=== PATIENT | female | born 1960 ===

== ENCOUNTER → 2019-09-30 13:20 | Outpatient (CLI) | payer MEDICAID ==
[2019-09-30 17:33] LABS: BASOPHILS 0.3 % (0-2); EOSINOPHILS 3.2 % (0-7); HEMATOCRIT 42.1 % (36.0-48.0); HEMOGLOBIN 13.6 g/dL (12-16); IMMATURE GRANULOCYTES 0.3 % (0-5); LYMPHOCYTES 15.8 % (15-50); MCH 32.1 pg (26.0-34.0); MCHC 32.3 g/dL (31.0-37.0); MCV 99.3 fL (80.0-100.0); MEAN PLATELET VOLUME 10.5 fL (7.4-10.4); MONOCYTES 9.5 % (2-11); NEUTROPHILS 70.9 % (40-80); PLATELET COUNT 380 10x3/uL (130-400); RBC 4.24 10x6/uL (4.00-5.40); RDW 13.3 % (11.5-14.5); WBC 11.6 10x3/uL (4.8-10.8)
[2019-10-02 08:10] LABS: IMMUNOGLOBULIN A 186 mg/dL (87-352); IMMUNOGLOBULIN G 978 mg/dL (700-1600); IMMUNOGLOBULIN M 88 mg/dL (26-217)
[2019-10-05 19:08] LABS: IMMUNOGLOBULIN E 52 IU/mL (6-495)
== END | disposition home or self-care (01) ==
LOC: D.LABREF 13:20
PROVIDERS: ATTEND Internal Medicine Pulmonary Disease
DX: J44.9 Chronic obstructive pulmonary disease, unspecified (principal); J40 Bronchitis, not specified as acute or chronic